=== PATIENT | female | born 1970 | race Caucasian/White ===

== ENCOUNTER 2016-04-14 13:12 | Emergency (ER) | payer BC | END 2016-04-14 14:10 | disposition left against medical advice (07) | LOC: UCCORT 13:12 | DX: R05 Cough (principal); R50.9 Fever, unspecified; Z53.21 Procedure and treatment not carried out due to patient leaving prior to being seen by health care provider ==

== ENCOUNTER 2017-03-27 10:01 | Emergency (ER) | payer BC ==
[2017-03-27 11:43] VITALS: BP 123/78
--- NOTE | 2017-03-27 11:48 | UC ---
Throat Pain/Nasal Jabari HPI - HPI Summary HPI Summary: 7 days of sinus pressure nasal congestion and cough, fevers last week - History of Current Complaint Chief Complaint: UCRespiratory Stated Complaint: JABARI. Time Seen by Provider: 03/27/17 11:43 Hx Obtained From: Patient Hx Last Menstrual Period: 03/13/17 ?: No Onset/Duration: Sudden Onset, Lasting Days - 7, Still Present Severity: Moderate Cough: Nonproductive Associated Signs & Symptoms: Positive: Sinus Discomfort, Nasal Discharge - Allergies/Home Medications Allergies/Adverse Reactions: Allergies Allergy/AdvReac Type Severity Reaction Status Date / Time No Known Allergies Allergy Verified 03/27/17 11:44 Home Medications: Home Medications Dextromethorphan-Phenylephrine [Day Time Multi-Symptom Co 10-5-325 mg] 2 cap PO PRN 03/27/17 [History] Ibuprofen [Ibuprofen 200] 600 mg PO PRN 03/27/17 [History] Pseudoephedrine-Guaifenesin [Mucinex D 60-600 mg] 1 tab PO BID 03/27/17 [ History Confirmed 03/27/17] PMH/Surg Hx/FS Hx/Imm Hx Previously Healthy: No Endocrine History: Hypothyroidism - Surgical History Surgical History: None - Family History Known Family History: Positive: None, Unknown - Social History Occupation: Employed Full-time Lives: With Family Alcohol Use: Rare Substance Use Type: None Smoking Status (MU): Never Smoked Tobacco - Immunization History Most Recent Influenza Vaccination: [id number] Review of Systems Constitutional: Negative Skin: Negative Eyes: Negative ENT: Nasal Discharge, Sinus Congestion, Sinus Pain/Tenderness Respiratory: Cough Cardiovascular: Negative Gastrointestinal: Negative Genitourinary: Negative Motor: Negative Neurovascular: Negative Musculoskeletal: Negative Neurological: Headache Psychological: Negative Is Patient Immunocompromised?: No All Other Systems Reviewed And Are Negative: Yes Physical Exam Triage Information Reviewed: Yes Appearance: Well-Appearing, No Pain Distress, Well-Nourished Vital Signs: Initial Vital Signs Temp 98.5 F 03/27/17 11:36 Pulse 83 03/27/17 11:36 Resp 14 03/27/17 11:36 BP 123/78 03/27/17 11:36 Pulse Ox 99 03/27/17 11:36 Vital Signs Reviewed: Yes Eye Exam: Normal Eyes: Positive: Conjunctiva Clear ENT Exam: Normal ENT: Positive: Normal ENT inspection, Hearing grossly normal, Pharynx normal, Nasal congestion, Nasal drainage, Uvula midline. Negative: TMs normal, Tonsillar swelling, Tonsillar exudate, Trismus, Muffled voice, Hoarse voice, Dental tenderness, Sinus tenderness Dental Exam: Normal Neck exam: Normal Neck: Positive: Supple, Nontender, No Lymphadenopathy Respiratory Exam: Normal Respiratory: Positive: Chest non-tender, Lungs clear, Normal breath sounds, No respiratory distress, No accessory muscle use Cardiovascular Exam: Normal Cardiovascular: Positive: RRR, No Murmur, Pulses Normal, Brisk Capillary Refill Musculoskeletal Exam: Normal Musculoskeletal: Positive: Strength Intact, ROM Intact, No Edema Neurological Exam: Normal Neurological: Positive: Alert, Muscle Tone Normal Psychological Exam: Normal Psychological: Positive: Normal Response To Family, Age Appropriate Behavior, Consolable Skin Exam: Normal Throat Pain/Nasal Course/Dx - Course Assessment/Plan: Augmentin flonase, increase fluids, tylenol, ibuprofen for pain follow with pcp prn - Differential Dx/Diagnosis Provider Diagnoses: Acute Rhinosinusitis Discharge - Discharge Plan Condition: Stable Disposition: HOME Prescriptions: Amoxicillin/Clavulanate TAB* [Augmentin TAB 875*] 875 mg PO BID #20 tab Fluticasone NASAL SPRAY 50MCG* [Flonase NASAL SPRAY 50MCG*] 2 spray BOTH NARES DAILY #1 btl Patient Education Materials: Sinusitis (ED), Nasal Rinse (ED), How to Use Nasal [place] (ED) Referrals: Flower Patterson MD [Primary Care Provider] - If Needed
== END 2017-03-27 12:08 | disposition home or self-care (01) ==
LOC: UCCORT 10:01
DX: J01.90 Acute sinusitis, unspecified (principal); E03.9 Hypothyroidism, unspecified
CPT/HCPCS: 99212; G0463

== ENCOUNTER 2017-10-15 12:16 | Emergency (ER) | payer BC ==
[2017-10-15 12:54] VITALS: BP 115/81
--- NOTE | 2017-10-15 13:16 | UC ---
Throat Pain/Nasal Jabari HPI - HPI Summary HPI Summary: Fever and sore throat for 2 days, daughter has Hand foot and mouth - History of Current Complaint Chief Complaint: UCRespiratory Stated Complaint: SORE THROAT, CHILLS, FEVER Time Seen by Provider: 10/15/17 12:58 Hx Obtained From: Patient Hx Last Menstrual Period: IUD ?: No Onset/Duration: Sudden Onset, Lasting Days - 2 Severity: Moderate Pain Intensity: 5 Cough: Nonproductive Associated Signs & Symptoms: Positive: Dysphagia, Wheezing, Hoarseness, Fever - Allergies/Home Medications Allergies/Adverse Reactions: Allergies Allergy/AdvReac Type Severity Reaction Status Date / Time No Known Allergies Allergy Verified 10/15/17 12:48 Home Medications: Home Medications Acetaminophen TAB* [Tylenol TAB*] 650 mg Q6HR PRN 10/15/17 [History Confirmed ] PMH/Surg Hx/FS Hx/Imm Hx Previously Healthy: Yes - Surgical History Surgical History: None - Family History Known Family History: Positive: None, Unknown - Social History Alcohol Use: Rare Substance Use Type: None Smoking Status (MU): Never Smoked Tobacco - Immunization History Most Recent Influenza Vaccination: [id number] Most Recent Tetanus Shot: UTD Review of Systems Constitutional: Fever Skin: Negative Eyes: Negative ENT: Sore Throat, Ear Ache Respiratory: Cough Cardiovascular: Negative Gastrointestinal: Negative Genitourinary: Negative Motor: Negative Neurovascular: Negative Musculoskeletal: Negative, Calf Tenderness Psychological: Negative Is Patient Immunocompromised?: No All Other Systems Reviewed And Are Negative: Yes Physical Exam Triage Information Reviewed: Yes Appearance: Well-Nourished, Ill-Appearing, Pain Distress Vital Signs: Initial Vital Signs Temp 98.3 F 10/15/17 12:50 Pulse 93 10/15/17 12:50 Resp 16 10/15/17 12:50 BP 115/81 10/15/17 12:50 Pulse Ox 98 10/15/17 12:50 Vital Signs Reviewed: Yes Eye Exam: Normal ENT: Positive: Pharyngeal erythema, TMs normal Dental Exam: Normal Neck exam: Normal Neck: Positive: Supple, Nontender, No Lymphadenopathy Respiratory Exam: Normal Respiratory: Positive: Chest non-tender, Lungs clear, Normal breath sounds Cardiovascular Exam: Normal Cardiovascular: Positive: RRR, No Murmur, Pulses Normal Abdominal Exam: Normal Abdomen Description: Positive: Nontender, No Organomegaly, Soft Bowel Sounds: Positive: Present Musculoskeletal Exam: Normal Musculoskeletal: Positive: Strength Intact, ROM Intact, No Edema Neurological Exam: Normal Neurological: Positive: Alert, Muscle Tone Normal Psychological Exam: Normal Skin Exam: Normal Throat Pain/Nasal Course/Dx - Course Course Of Treatment: hx obtained, meds reviewed, rapid strep neg - Differential Dx/Diagnosis Differential Diagnosis/HQI/PQRI: Otitis Media, Pharyngitis, Sinusitis, URI Provider Diagnoses: c[place]ie virus. fever. pharyngitis Discharge - Sign-Out/Discharge Documenting (check all that apply): Patient Departure - Discharge Plan Condition: Stable Disposition: HOME Patient Education Materials: Hand, Foot, and Mouth Disease (ED) Forms: *Work Release Referrals: Flower Patterson MD [Primary Care Provider] - Additional Instructions: 1. rest, increase fluids 2. continue with tylenol and motrin for fever and pain 3. I have included a work note - Billing Disposition and Condition Condition: STABLE Disposition: Home Attestation Statement User Type: Provider - I was available for consult. This patient was seen by the [facility]. The patient was not presented to, seen by, or examined by me. -Casandra
== END 2017-10-15 13:30 | disposition home or self-care (01) ==
LOC: UCCORT 12:16
DX: B97.11 Coxsackievirus as the cause of diseases classified elsewhere (principal); R50.9 Fever, unspecified; J02.9 Acute pharyngitis, unspecified
CPT/HCPCS: 87651; 99211; G0463

== ENCOUNTER 2018-10-21 09:11 | Emergency (ER) | payer BC ==
--- NOTE | 2018-10-21 09:57 | UC ---
Throat Pain/Nasal Jabari HPI - HPI Summary HPI Summary: Pt presents with c/o sudden onset of ST, fever, and body aches that began yesterday. - History of Current Complaint Chief Complaint: UCRespiratory Stated Complaint: ST Time Seen by Provider: 10/21/18 09:45 Hx Obtained From: Patient Hx Last Menstrual Period: DOES NOT HAVE REG PERIODS, HAS MIRENA IUD ?: No Onset/Duration: Sudden Onset Severity: Moderate Pain Intensity: 6 Cough: None Associated Signs & Symptoms: Positive: Dysphagia, Fever - Epiglottits Risk Factors Epiglottis Risk Factors: Sudden Onset - Allergies/Home Medications Allergies/Adverse Reactions: Allergies Allergy/AdvReac Type Severity Reaction Status Date / Time No Known Allergies Allergy Verified 10/21/18 09:38 Home Medications: Home Medications Dextromethorphn/Acetaminoph/Cp [Vicks Nyquil Cold & Flu Liquid] 1 liq PO BEDTIME PRN 10/21/18 [History Confirmed 10/21/18] Levonorgestrel (Iud) [Mirena IUD] 20 mcg IU 10/21/18 [History] Levothyroxine TAB* [Synthroid 75 MCG TAB*] 75 mcg PO DAILY 10/21/18 [History Confirmed 10/21/18] PMH/Surg Hx/FS Hx/Imm Hx Previously Healthy: Yes - Surgical History Surgical History: None - Family History Known Family History: Positive: None, Unknown - Social History Occupation: Employed Full-time Lives: With Family Alcohol Use: Rare Substance Use Type: None Smoking Status (MU): Never Smoked Tobacco Have You Smoked in the Last Year: No - Immunization History Most Recent Influenza Vaccination: [id number] Most Recent Tetanus Shot: UTD Vaccination Up to Date: Yes Review of Systems All Other Systems Reviewed And Are Negative: Yes Constitutional: Positive: Fever, Chills, Fatigue Skin: Positive: Negative Eyes: Positive: Negative ENT: Positive: Sore Throat Respiratory: Positive: Negative Cardiovascular: Positive: Negative Gastrointestinal: Positive: Negative Genitourinary: Positive: Negative Motor: Positive: Negative Neurovascular: Positive: Negative Musculoskeletal: Positive: Negative Neurological: Positive: Negative Psychological: Positive: Negative Is Patient Immunocompromised?: No Physical Exam Triage Information Reviewed: Yes Appearance: Ill-Appearing Vital Signs: Initial Vital Signs Temp 98.6 F 10/21/18 09:40 Pulse 92 10/21/18 09:40 Resp 15 10/21/18 09:40 BP 117/78 10/21/18 09:40 Pulse Ox 100 10/21/18 09:40 Vital Signs Reviewed: Yes Eye Exam: Normal ENT: Positive: Tonsillar swelling, Tonsillar exudate Dental Exam: Normal Neck exam: Normal Respiratory Exam: Normal Cardiovascular Exam: Normal Musculoskeletal Exam: Normal Neurological Exam: Normal Psychological Exam: Normal Skin Exam: Normal Throat Pain/Nasal Course/Dx - Course Course Of Treatment: While pt was at clinic visit and about to be discharged, she stated that she was not feeling well, and that she felt a "little light headed". Pt c/o appeared pale, c/o light headed and was diaphoretic. Pt's stated she did not eat breakfast this morning and did not eat much yesterday throughout the day. Pt states she has a history of "this happening" if she does not eat breakfast. Pt was then laid down, EKG done, vitals repeated, , fingerstick and IV, inserted and normal saline 1000 ml hung as a bolus. - Differential Dx/Diagnosis Differential Diagnosis/HQI/PQRI: Mononucleosis, Pharyngitis, Tonsillitis Provider Diagnosis: Tonsillitis with exudate, Vaso vagal episode Discharge - Sign-Out/Discharge Documenting (check all that apply): Patient Departure All imaging exams completed and their final reports reviewed: No Studies - Discharge Plan Condition: Stable Disposition: HOME Prescriptions: Penicillin VK 500 MG TAB(NF) [Penicillin VK 500 mg Tab] 500 mg PO Q8H #30 tab Patient Education Materials: Tonsillitis (ED), Near Syncope (ED), Safe Use of NSAIDs (ED) Forms: *Work Release Referrals: Flower Patterson MD [Primary Care Provider] - If Needed Additional Instructions: If your symptom do not improve or they worsen, please go directly to the closest emergency room. - Billing Disposition and Condition Condition: STABLE Disposition: Home
[2018-10-21] MEDS ORDERED: NS 0.9% 1000 ML** 1,000 ML IV ONE (10:18)
[2018-10-21] MEDS ORDERED: Acetaminophen TAB* 325 MG PO ONE (11:10)
[2018-10-21 11:37] VITALS: BP 122/75
== END 2018-10-21 11:45 | disposition home or self-care (01) ==
LOC: UCCORT 09:11
DX: J03.90 Acute tonsillitis, unspecified (principal); R55 Syncope and collapse
CPT/HCPCS: 87651; 93005; 96360; 99212; A9270-GY; G0463